=== PATIENT | female | born 1970 | race Caucasian/White ===

== ENCOUNTER → 2022-01-23 | Day surgery (SDC) | payer OTHER ==
[~2022-01-23] VITALS: Ht 160 cm; Wt 75.3 kg
[~2022-01-23] MED LIST: CLARITIN10 MG PO; FLONASE ALLER15.8 ML; LOESTRIN 21 1-1 EACH PO; VITAMIN B122500 MC1 PO; XANAX0.25 MG PO
[2022-01-23 08:32] LABS: HCG (URINE) SCREEN NEGATIVE (NEGATIVE)
== END | disposition home or self-care (01) ==
LOC: FAS 07:50
PROVIDERS: Anesthesiology
DX: Z12.11 Encounter for screening for malignant neoplasm of colon (principal); K63.5 Polyp of colon; K64.8 Other hemorrhoids; Z80.0 Family history of malignant neoplasm of digestive organs; Z90.49 Acquired absence of other specified parts of digestive tract; Z98.51 Tubal ligation status; Z87.891 Personal history of nicotine dependence
CPT/HCPCS: 84703; J2250; J2704; J7120

== ENCOUNTER 2022-02-14 07:59 | Emergency (ER) | payer OTHER ==
[~2022-02-14] VITALS: Ht 160 cm; Wt 76.2 kg
[2022-02-14 09:14] LABS: ALBUMIN 3.5 g/dL (3.4-5.0); BILIRUBIN - TOTAL 0.2 mg/dL (0.2-1.0); CREATININE 1.08 mg/dL (0.51-0.95); GLOBULIN (CALCULATION) 3.4 g/dL; POTASSIUM 3.5 mmol/L (3.5-5.1); TOTAL PROTEIN 6.9 g/dL (6.4-8.2)
[2022-02-14 09:19] LABS: LACTIC ACID 1.9 mmol/L (0.4-1.9)
[2022-02-14 09:22] LABS: BASOPHIL 0.4 % (0-2); EOSINOPHIL 0.7 % (0-5); HCT 40.3 % (37.0-47.0); HGB 13.1 g/dl (12.5-16.0); LYMPHOCYTE 21.6 % (15-48); MCH 29.6 pg (25.0-31.0); MCHC 32.5 g/dL (32.0-36.0); MCV 91.2 fL (78.0-100.0); MONOCYTE 3.1 % (0-12); MPV 9.6 fL (6.0-9.5); NEUTROPHIL 73.7 % (41-80); NRBC 0; PLT 335 K/uL (150-400); RBC 4.42 M/uL (4.20-5.40); RDW 13.1 % (11.5-14.0); WBC 12.4 K/uL (4.0-10.5)
[2022-02-14 09:23] LABS: BILIRUBIN NEGATIVE (NEGATIVE); BLOOD NEGATIVE Ery/uL (NEGATIVE); CLARITY CLEAR (CLEAR); COLOR YELLOW (YELLOW); GLUCOSE (U) NORMAL (NORMAL); LEUKOCYTES NEGATIVE Leu/uL (NEGATIVE); NITRITE NEGATIVE (NEGATIVE); PROTEIN NEGATIVE (NEGATIVE); SPECIFIC GRAVITY >=1.030 (1.001-1.030); UROBILINOGEN 0.2 mg/dL (0.2-1.0); pH 5.5 (5.0-9.0)
[2022-02-14] MEDS ORDERED: NORCO 5-325 TA1 EACH PO (11:20)
[2022-02-14] MEDS ORDERED: ONDANSETRON ODT4 MG PO (11:20)
[2022-02-14] MEDS ORDERED: KETOROLAC TROME10 MG PO (11:26)
== END 2022-02-14 11:36 | disposition home or self-care (01) ==
LOC: FER 07:59
PROVIDERS: Emergency Medicine
DX: N13.0 Hydronephrosis with ureteropelvic junction obstruction (principal); N13.2 Hydronephrosis with renal and ureteral calculous obstruction
CPT/HCPCS: 36415; 80053; 81003; 83605; 83690; 85025; J1170; J1885; J2270; J2405; J7030